=== PATIENT | female | born 1950 | race African-American/Black ===

== ENCOUNTER 2024-05-19 11:57 | Observation (INO) | payer OTHER, BC ==
[2024-05-19 12:50] LABS: BASO % 0.9 % (0-2.0); HEMATOCRIT 39.7 % (32.4-45.2); HEMOGLOBIN 13.2 GM/dL (10.7-15.3); LYMPH % 36.3 % (8-40); MCH 27.8 pg (25.7-33.7); MCHC 33.1 g/dl (32.0-36.0); MEAN CELL VOLUME 83.7 fl (80-96); MEAN PLT VOLUME 7.4 fl (7.5-11.1); MONO % 8.5 % (3.8-10.2); NEUT % 46.3 % (42.8-82.8); PLATELET COUNT 257 10^3/uL (134-434); RBC 4.75 M/mm3 (3.60-5.2); RDW 15.3 % (11.6-15.6); WHITE BLOOD COUNT 7.5 K/mm3 (4.0-10.0)
[2024-05-19 13:07] LABS: ACTIVATED PTT 31.2 SECONDS (25.2-36.5); INR 0.95 (0.83-1.09); POTASSIUM 3.7 mmol/L (3.5-5.1); PROTHROMBIN TIME (PATIENT) 10.7 SEC (9.7-13.0)
[2024-05-19 13:09] LABS: CALCIUM 9.9 mg/dL (8.5-10.1)
[2024-05-19 13:12] LABS: BLOOD UREA NITROGEN 18.8 mg/dL (7-18)
[2024-05-19 13:13] LABS: CREATININE 0.9 mg/dL (0.55-1.3)
[2024-05-19 13:14] LABS: TOT PROT 6.9 g/dl (6.4-8.2)
[2024-05-19 13:17] LABS: BILIRUBIN,TOTAL 0.5 mg/dL (0.2-1)
[2024-05-19] MEDS ORDERED: ASPIRIN 81 MG CHEWABLE TABLETS ONE (16:50)
[2024-05-19] MEDS: ASPIRIN COATED 81 MG TABLET.EC PO SCH (16:53)
[2024-05-19 20:54] VITALS: BMI 27.6
[2024-05-19] MEDS: ATORVASTATIN CA 40 MG TABLET (FP) PO SCH (21:06)
[2024-05-19] MEDS: HEPARIN NA (PORCINE) 5,000 UNITS/ML 1ML VIAL SQ SCH (21:07)
[2024-05-20 01:21] VITALS: TEMP 98.2
[2024-05-20 06:42] VITALS: PULSE 84
[2024-05-20] MEDS: amLODIPine BESYLATE 10 MG TABLET (FP) PO SCH (09:23)
[2024-05-20 13:49] VITALS: BP 152/86; RESP 17
== END 2024-05-20 15:45 | disposition home or self-care (01) ==
LOC: JER 11:57 → JERBED 14:51 → J4S 19:29
PROVIDERS: ADMIT Internal Medicine; ATTEND Nurse Practitioner
PROC: 3E023GC Introduction of Other Therapeutic Substance into Muscle, Percutaneous Approach (ICD-10-PCS; principal; 2024-05-19)
PROC: 3E033NZ Introduction of Analgesics, Hypnotics, Sedatives into Peripheral Vein, Percutaneous Approach (ICD-10-PCS; 2024-05-19)
DX: G45.9 Transient cerebral ischemic attack, unspecified (principal); R94.02 Abnormal brain scan; E87.3 Alkalosis; I10 Essential (primary) hypertension; E78.5 Hyperlipidemia, unspecified; R22.1 Localized swelling, mass and lump, neck
CPT/HCPCS: 36415; 70450-TC; 70551-TC; 71045-TC-FY; 80053; 80061; 82550; 82962; 83036; 84436; 84443; 84479; 84484; 85025; 85610; 85730; 86850; 86900; 86901; 93005; 93010; 93306-TC; 93880-TC; 96372; 96374; 97116-GP; 97161-GP; 99285-25; G0378; J1644